=== PATIENT | male | born 1980 | race Caucasian/White ===

== ENCOUNTER 2017-03-12 07:17 | Emergency (ER) | payer BC ==
[2017-03-12 09:10] VITALS: BP 126/82
--- NOTE | 2017-03-12 10:33 | CR ---
INDICATION: Sliding into base on 03/09/2017 date of injury, pain right ribs #8 , 9, 10, and 11. RIGHT RIBS WITH CHEST: CHEST: PA view of the chest revealed the heart, mediastinum, and bony thorax to be unremarkable. An active infiltrate or effusion was not identified. IMPRESSION: No active disease. RIGHT RIBS: Five images of the right ribs were obtained. At the anterior tip of the 6th right rib, there is question of an undisplaced - hairline fracture. This should be correlated clinically. No other bony abnormality was identified. No significantly displaced or angulated fracture sites could be identified. Report was called to Dr. Mota at 0954 hours, 03/12/2017. [facility]ITAL[facility]
--- NOTE | 2017-03-13 02:07 | ER ---
DATE SEEN: 03/12/2017 ADDENDUM: TIME SEEN: The patient was seen at 0730 hours. /[id number] KETURAH/AURE
--- NOTE | 2017-03-13 04:58 | ER ---
DATE SEEN: 03/12/2017 CHIEF COMPLAINT: Right rib discomfort. HISTORY OF PRESENT ILLNESS: This pleasant 36-year-old male was playing softball and on Sunday03/09/2017, he was sliding into home plate when he over struck the base and his chest traumatized the stationary home base bag. He has right chest discomfort. There is discomfort when taking deep breath and on every inspiration. Denies fever, chills, or productive cough. He is a smoker. Half pack to a pack of cigarettes per day. Works at [employer]. It is uncomfortable for him to lift, carry, and move things. Patient has not used other medications. PAST MEDICAL HISTORY: Negative. No diabetes, heart disease, high blood pressure, asthma, or serious illnesses. He does not use street drugs, but does drink alcohol occasionally. PHYSICAL EXAMINATION: VITAL SIGNS: Blood pressure 122/88, heart rate 70 and regular, respirations 16, oxygen saturation 100%, temperature is 36.6 degrees centigrade. CONSTITUTION: The patient is alert, asthenic, unshaven, pleasant male, in mild discomfort who is quite stoic. HEENT: PERRLA intact. Pharynx without abnormality. TMs negative. Hearing is good. No thyromegaly or masses. Denies cervical adenopathy. LUNGS: Clear to auscultation except for moderate right anterior, ribs 8, 9, and 10, subchondral costal joint tenderness and Rib 8, chondrosternal joint is most tender. ABDOMEN: Soft. No guarding. No abdominal discomfort. No hepatosplenomegaly. DIAGNOSTIC DATA: Chest x-ray with rib detail is negative. No fracture. ASSESSMENT: 1. Rib wall contusion, anterior right chest. 2. Sub costochondritis 8, 9, 10, and 11 ribs and mild sternochondritis joint discomfort, ribs 8 and 9. PLAN: Reassured. Tylenol 1000 mg and ibuprofen 600 mg together every 6 hours. For breakthrough pain, he has 12 tablets of [place] 1 q.6 hours p.r.n. pain. He has been advised because of the narcotic epidemic-heroin, etc., I have chosen not to provide more than 12 tablets. Follow up with his doctor in a week or earlier if he has more problems. Use incentive spirometer at least 4 times a day, preferably more. If any sign of fever, markedly increased difficulty breathing, or shortness of breath, he needs to return to ED and/or see his doctor. Also, off work for 2 days. /[id number] KETURAH/AURE MERCADO
--- NOTE | 2017-03-13 12:35 | ER ---
DATE SEEN: 03/12/2017 The patient was seen at 0730 hours. CHIEF COMPLAINT: Right rib pain after playing softball 03/09/2017. HISTORY OF PRESENT ILLNESS: The patient was attempting to steal home plate and he was diving for home plate. As he slid into home plate, his right underside of his anterior chest got caught on the base and he has moderate contusion and discomfort. He has had progressive increase in his pain and discomfort in his ribs and increased end-inspiratory right chest pain. No previous history of fractured ribs. No fever. No chills. No cough. No shortness of breath. He does smoke, but minimal amount of cigarettes. He has decreased his smoking since his chest contusion. Denies shortness of breath, dyspnea on exertion, orthopnea, PND, irregular heartbeat, tachycardia, or diaphoresis. ALLERGIES: Codeine, penicillin, bee venom, and protein. SOCIAL HISTORY: The patient smokes several cigarettes per day. He works at [employer] . REVIEW OF SYSTEMS: Negative. MEDICATIONS: 1. Albuterol p.r.n. 2. Ibuprofen p.r.n. PHYSICAL EXAMINATION: VITAL SIGNS: Blood pressure 122/88, heart rate 70, respirations 16, oxygen saturation 100% on room air, and temperature is 36.6 degrees centigrade. HEENT: PERRLA intact. Pharynx without abnormality. GENERAL: The patient is an asthenic man, in mild distress. NECK: Without tenderness. LUNGS: Clear without rales, rhonchi, or wheezes. HEART: S1, S2. No murmur. CHEST: Chest wall ribs 8, 9, 10, 11 anteriorly at the costochondral junction, moderate discomfort and moderate anterior axillary line. Less discomfort at the sternochondral joints. Sternum is nontender. No ecchymosis. No swelling. No crepitus. No stepoff noted of the ribs. No hepatosplenomegaly. No liver tenderness. ABDOMEN: Soft. No guarding. No abdominal discomfort. EXTREMITIES: Without edema. ASSESSMENT: 1. Rib x-rays are negative. No evidence for fracture. 2. Traumatic 8, 9, 10, 11 costochondritis. 3. Right 9, 10, 11 traumatic sternal chondritis - mild. PLAN: 1. The patient is to be off work for 2 days. 2. Follow up with his doctor in a week. 3. Tylenol 1000 mg and ibuprofen 600 mg together every 6 hours for pain. For breakthrough pain, he has been given 12 tablets of Vicodin. I have informed him that I would not give more tablets just because of the narcotic epidemic in the [place]. /[id number] KETURAH/AURE
== END 2017-03-12 09:12 | disposition home or self-care (01) ==
LOC: FB.ED 07:17
DX: S20.211A Contusion of right front wall of thorax, initial encounter (principal); M94.0 Chondrocostal junction syndrome [Tietze]; F17.210 Nicotine dependence, cigarettes, uncomplicated; Z88.5 Allergy status to narcotic agent; Z88.0 Allergy status to penicillin; Z91.030 Bee allergy status; Z91.018 Allergy to other foods; W22.8XXA Striking against or struck by other objects, initial encounter
CPT/HCPCS: 71101-RT; 99283